=== PATIENT | male | born 1995 | race Caucasian/White ===

== ENCOUNTER 2022-02-02 15:24 | Outpatient (REF) | payer MEDICAID, OTHER, SELFPAY ==
--- NOTE | ~2022-02-02 | XR_ITS ---
EXAMINATION: XR LUMBOSACRAL SPINE CLINICAL INFORMATION: Low back pain. COMPARISON: None. TECHNIQUE: 3 views of the lumbosacral spine. FINDINGS: There is a transitional vertebral body segment or 6 lumbar-type vertebral bodies. Levels are designated with the transitional segment inferiorly. There is mild 3 mm anterior subluxation of the transitional segment S1 S1 bone alignment is otherwise normal. No fracture or dislocation is seen. There is mild disc space narrowing at the transitional segment S1 level. Disc spaces are otherwise normal. Paraspinal soft tissues are normal. XR/XR lumbar spine 2-3V IMPRESSION: Transitional vertebral body segment or 6 lumbar-type vertebral bodies. Mild anterior subluxation and disc space narrowing at the transitional segment S1 level.
== END 2022-02-02 15:25 | disposition home or self-care (01) ==
LOC: HO.XRAY 15:24
PROVIDERS: Visit Provider Emergency Medicine
DX: M54.50 Low back pain, unspecified (principal)
CPT/HCPCS: 72100

== ENCOUNTER 2022-06-23 22:37 | Emergency (ER) | payer MEDICAID, OTHER, SELFPAY ==
--- NOTE | ~2022-06-23 | CT_ITS ---
EXAMINATION: CT ABDOMEN AND PELVIS WITHOUT CONTRAST CLINICAL INFORMATION: Right flank pain COMPARISON: None TECHNIQUE: Multidetector volumetric imaging was performed from the superior aspect of the liver through the pubic symphysis. Sagittal and coronal reformatted images were obtained on the technologist's workstation. This CT examination was performed using dose optimization techniques as appropriate, variously including the following: *Automated exposure control *Adjustment of mA and/or kV according to patient size (this includes techniques or standardized protocols for targeted exams where dose is matched to indication/reason for exam; i.e. extremities or head) *Use of iterative reconstruction technique DLP: 858 mGy-cm FINDINGS: LUNG BASES: The visualized lung bases are unremarkable. LIVER, GALLBLADDER, AND BILIARY TREE: The liver is normal in size, shape, and attenuation. No focal hepatic lesion or biliary ductal dilatation is present. The gallbladder is unremarkable with no evidence of radiopaque gallstones, gallbladder wall thickening, or obvious pericholecystic inflammatory changes. PANCREAS: Unremarkable. SPLEEN: Unremarkable. ADRENAL GLANDS: Unremarkable. KIDNEYS AND URETERS: The kidneys are normal in size, shape, and attenuation. No hydronephrosis, hydroureter, or calculi seen. No perinephric stranding. BLADDER: Unremarkable. GASTROINTESTINAL TRACT: No bowel related abnormalities. Appendix not seen, however there is no evidence of appendicitis. ABDOMINAL WALL: No significant hernia is appreciated. LYMPH NODES: Normal. VASCULAR: Unremarkable. PELVIC VISCERA: Unremarkable. OSSEOUS STRUCTURES: No acute or suspicious osseous abnormalities. Broad-based posterior disc protrusions at L3-L4, L4-L5 and L5-S1, most pronounced at L5-S1 where there is a right posterior paracentral/foraminal protrusion. CT/CT abdomen pelvis wo IV con IMPRESSION: No urinary calculi or hydronephrosis. No potential etiology for the patient's right flank pain is identified.
[2022-06-23 23:34] VITALS: BP 133/69; PULSE 82; RESP 16; TEMP 36.8; O2SAT 96; BMI 31.6
--- NOTE | 2022-06-24 02:45 | ED_ITS ---
HPI - Back Pain/Injury General Chief Complaint: Back Pain/Injury Stated Complaint: pain in back and right leg Time Seen by Provider: 06/24/22 00:59 Source: patient and family () Mode of arrival: ambulatory History of Present Illness HPI Narrative: 27-year-old male with chronic back pain presents with complaints right lateral thigh numbness but denies any urinary or fecal difficulties and denies any groin numbness but states he is having some pain at the right lower back that is not been associated with any fever, chills, neck pain. Related Data Previous Rx's Medication Instructions Recorded ketorolac 10 mg tablet 10 mg PO Q6H PRN pain 5 days #20 06/24/22 tabs Allergies Allergy/AdvReac Type Severity Reaction Status Date / Time Unable to Assess Allergy Verified 06/24/22 02:44 Review of Systems Review of Systems: Pertinent positives and negatives as stated in HPI 10 point review of systems is otherwise negative. PMFSH Past Medical History Source: nursing notes reviewed Social History Social History Advance Directives: No Advance Directives Information Provided: No Physical Exam Vital Signs: Vital Signs: Last Vital Signs Temp 98.3 F 06/24/22 02:58 Pulse 75 06/24/22 02:58 Resp 17 06/24/22 02:58 BP 119/66 06/24/22 02:58 Pulse Ox 100 06/24/22 02:58 O2 Del Method 06/24/22 02:58 BMI result Body Mass Index 31.6 VITAL SIGNS: Reviewed. GENERAL: Well developed, well nourished, in no acute distress. HEAD: Normocephalic/atraumatic EYES: PERRLA, EOMI EARS: Ext canals without abnormality OROPHARYNX: no oral lesions noted, posterior pharynx clear NECK: Supple, no adenopathy, no midline cervical spine tenderness LUNGS: Normal breath sounds. No adventitious sounds or accessory muscle use. SpO2<96> CARDIOVASCULAR: Regular rate and rhythm without noted murmurs ABDOMEN: Soft, non-tender, non-distended with bowel sounds. BACK: No midline vertebral tenderness, step-offs, erythema. Pain on palpation over the SI on the right MUSCULOSKELETAL: No tenderness, deformities, or effusions noted on gross inspection. EXTREMITIES: No cyanosis, clubbing or edema. SKIN: Inspection of the skin reveals no rashes NEUROLOGIC: Alert and oriented x 4. Strength and sensation to light touch were grossly intact x 4, DTRs are intact, no groin numbness. Course Course Course Narrative: 27-year-old male with history and clinical presentation consistent with chronic back pain and patient's pants were noted to be very tight on him with a belt and suspect some possible lateral cutaneous nerve compression contributing to his symptoms as DTRs are intact without evidence of any numbness, tingling into the distal extremity. Patient received combination analgesics, muscle relaxant as well as lidocaine patch. On re-evaluation patient still has pain that he describes as 6 to 7/10. Conducted a CT scan which shows extensive disc herniation without concerns on clinical exam/history cauda equina. Provided patient with tramadol and on re- evaluation he is feeling much better. He is otherwise discharged home with instructions to follow-up with his primary care provider and undergo physical therapy. Discharge Plan Discharge Clinical Impression: Lumbar radiculopathy, Herniated disc Patient Disposition: Home, Self-Care Instructions: Lumbar Disc Herniation (ED), Lumbar Radiculopathy (ED), Lower Back Exercises (ED) Additional Instructions: 1. Tylenol 1000 mg, por v?a oral, cada 6 horas seg?n sea necesario para controlar el dolor. No exceda los 4000 mg dentro de las 24 horas. 2. Parche de lidoca?na, aplique en el ?lilia de m?xima sensibilidad maricel se indica en el empaque exterior. 3. Osmel un seguimiento con el proveedor de atenci?n primaria llamando a la oficina el lunes por la ma?raman y programando andrea narayan para andrea reevaluaci?n. Regrese a la heather de emergencias por cualquier empeoramiento de los s?ntomas. Prescriptions: New ketorolac 10 mg tablet 10 mg PO Q6H PRN (Reason: pain) 5 Days Qty: 20 0RF Rx Instructions: Patient received Toradol in the emergency room. Print Language: Polish
[2022-06-24] MEDS: Acetaminophen 325 MG TABLET 975 MG PO (02:50)
[2022-06-24] MEDS: Ketorolac Tromethamine 15 MG/ML VIAL IM (02:51)
[2022-06-24] MEDS: Cyclobenzaprine HCl 5 MG TABLET PO (02:51)
[2022-06-24] MEDS: Lidocaine 4 % Patch ADH..PATCH 1 PATCH TRANSDERMA (02:51)
[2022-06-24 02:58] VITALS: BP 119/66; PULSE 75; RESP 17; TEMP 36.8; O2SAT 100
[2022-06-24] MEDS: traMADoL HCL 50 MG TABLET 25 MG PO (06:17)
== END 2022-06-24 06:53 | disposition home or self-care (01) ==
PROVIDERS: Emergency Provider Student in an Organized Health Care Education/Training Program
DX: M54.16 Radiculopathy, lumbar region (principal); M51.26 Other intervertebral disc displacement, lumbar region
CPT/HCPCS: 74176; 96372; 99283; 99284; J1885

== ENCOUNTER 2022-08-11 18:03 | Outpatient (REF) | payer MEDICAID, OTHER, SELFPAY ==
--- NOTE | ~2022-08-11 | MR_ITS ---
EXAMINATION: MR LUMBAR SPINE WITHOUT CONTRAST CLINICAL INFORMATION: Lumbago with sciatica, right side. COMPARISON: None TECHNIQUE: MRI of the lumbar spine was obtained using routine sequences without contrast. FINDINGS: The lumbar vertebral bodies maintain normal heights and alignment. There is mild disc height loss at L5-S1. There is no bone marrow edema. The distal spinal cord appears normal. The conus medullaris terminates normally at the L1 level. The extraspinal soft tissues are within normal limits. SPINAL LEVELS: L1-L2: No posterior disc abnormality. No spinal canal or neural foraminal stenosis. L2-L3: No posterior disc abnormality. No spinal canal or neural foraminal stenosis. L3-L4: No posterior disc abnormality. No spinal canal or neural foraminal stenosis. L4-L5: No posterior disc abnormality. No spinal canal or neural foraminal stenosis. L5-S1: Mild disc bulging with right subarticular protrusion causing mild compression of the traversing right S1 nerve root. Mild facet arthropathy. No spinal canal or neural foraminal stenosis. MR/MR lumbar spine wo con IMPRESSION: At L5-S1 there is right subarticular protrusion causing mild compression of the traversing right S1 nerve root. The remaining lumbar levels appear normal without nerve root compression.
== END 2022-08-11 18:04 | disposition home or self-care (01) ==
LOC: HO.MRI 18:03
PROVIDERS: Visit Provider Family Medicine
DX: M54.41 Lumbago with sciatica, right side (principal)
CPT/HCPCS: 72148

== ENCOUNTER 2023-01-07 21:45 | Emergency (ER) | payer MEDICAID, OTHER, SELFPAY ==
[2023-01-07 22:06] VITALS: BP 128/77; PULSE 78; RESP 18; TEMP 36.3; O2SAT 97; BMI 34.1
== END 2023-01-08 06:00 | disposition left against medical advice (07) ==
PROVIDERS: Emergency Provider Emergency Medicine
DX: M54.2 Cervicalgia (principal)
CPT/HCPCS: 99281